=== PATIENT | male | born 1965 | race American Indian/Alaskan Native ===

== ENCOUNTER 2019-10-27 21:16 | Emergency (ER) | payer SELFPAY ==
--- NOTE | 2019-10-27 21:26 | Emergency Department Report ---
Blank Doc - Documentation Documentation: 54-year-old male that presents with dizziness and lightheadedness. This initial assessment/diagnostic orders/clinical plan/treatment(s) is/are subject to change based on patient's health status, clinical progression and re- assessment by fellow clinical providers in the ED. Further treatment and workup at subsequent clinical providers discretion. Patient/guardians urged not to elope from the ED as their condition may be serious if not clinically assessed and managed. Initial orders include: 1- Patient sent to [facility] for further evaluation and treatment 2- labs 3- orthostatic vitals needed
[2019-10-27 21:30] VITALS: BP 128/83
[2019-10-27 22:25] LABS: Eosinophils % (Auto) 0.1 % (0.0-4.3); Hematocrit 45.2 % (35.5-45.6); Hemoglobin 15.1 gm/dl (11.8-15.2); Lymphocytes # (Auto) 1.1 K/mm3 (1.2-5.4); Lymphocytes % (Auto) 21.5 % (13.4-35.0); Mean Corpuscular HGB Conc 33 % (32-34); Mean Corpuscular Volume 85 fl (84-94); Monocytes # (Auto) 0.5 K/mm3 (0.0-0.8); Monocytes % (Auto) 8.8 % (0.0-7.3); Platelet Count 142 K/mm3 (140-440); Red Blood Count 5.32 M/mm3 (3.65-5.03); Red Cell Distribution Width 13.5 % (13.2-15.2)
[2019-10-27 22:39] LABS: Alanine Aminotransferase 72 units/L (7-56); Albumin 3.9 g/dL (3.9-5); BUN/Creatinine Ratio 11; Blood Urea Nitrogen 16 mg/dL (9-20); Calcium 9.2 mg/dL (8.4-10.2); Hemolysis Index 12
--- NOTE | 2019-10-28 00:35 | Emergency Department Report ---
HPI - General Chief Complaint: Dizziness Time Seen by Provider: 10/27/19 21:24 - HPI HPI: 54-year-old -[place] male presents to the emergency department with complaint of a 1.5-week history of lightheadedness and generalized weakness/fatigue. The lightheadedness is as if he would pass out. He denies any headache, chest pain, shortness of breath, vision change, slurred speech, or any other neurological deficits. Patient denies any fever but says that he has sometimes felt hot and sweaty. No past medical history. No recent travel or sick contacts at home. No primary care physician. He has not taken anything for his symptoms prior to presentation today. ED Past Medical Hx - Past Medical History Previous Medical History?: No - Social History Smoking Status: Never Smoker Substance Use Type: None ED Review of Systems ROS: Stated complaint: DIZZINESS/WEAKNESS Other details as noted in HPI Comment: All other systems reviewed and negative Constitutional: weakness. denies: fever Eyes: denies: eye pain, vision change ENT: denies: ear pain, throat pain Respiratory: denies: cough, shortness of breath Cardiovascular: denies: chest pain, palpitations Gastrointestinal: denies: abdominal pain, vomiting Genitourinary: denies: dysuria, discharge Musculoskeletal: denies: back pain, arthralgia Skin: denies: rash, lesions Neurological: denies: headache, numbness, paresthesias, vertigo Physical Exam - Physical Exam Vital Signs: Vital Signs 10/27/19 21:28 Temperature 99.3 F Pulse Rate 108 H Respiratory 18 Rate Blood Pressure 128/83 O2 Sat by Pulse 95 Oximetry Physical Exam: GENERAL: The patient is well-developed well-nourished. HENT: Normocephalic. Atraumatic. Patient has moist mucous membranes. EYES: Extraocular motions are intact. No nystagmus. NECK: Supple. Trachea is midline. CHEST/LUNGS: Clear to auscultation. There is no respiratory distress noted. HEART/CARDIOVASCULAR: Regular. There is no tachycardia. There is no murmur. ABDOMEN: Abdomen is soft, nontender. Patient has normal bowel sounds. There is no abdominal distention. SKIN: Skin is warm and dry. NEURO: The patient is awake, alert, and oriented. The patient is cooperative. The patient has no focal neurologic deficits. Normal speech. Cranial nerves II through XII grossly intact. MUSCULOSKELETAL: There is no tenderness or deformity. There is no limitation range of motion. There is no evidence of acute injury. Muscle strength 5 out of 5 for upper and lower extremities bilaterally. ED Course Vital Signs 10/27/19 21:28 Temperature 99.3 F Pulse Rate 108 H Respiratory 18 Rate Blood Pressure 128/83 O2 Sat by Pulse 95 Oximetry ED Medical Decision Making - Lab Data Result diagrams: 10/27/19 21:52 10/27/19 21:52 - EKG Data -: EKG Interpreted by Me EKG shows normal: sinus rhythm (PACs), axis (Left axis deviation), intervals, QRS complexes (Left anterior fascicular block), ST-T waves (T wave inversions to the lateral leads) Rate: normal - EKG Data When compared to previous EKG there are: previous EKG unavailable Interpretation: other (Sinus rhythm with PACs, rate of 83 bpm, left anterior fascicular block, T wave inversions to the lateral leads) - Medical Decision Making This patient presents to the emergency department with some lightheadedness, generalized fatigue and/or weakness. On examination he does not have any focal, motor or sensory deficits and his cranial nerves are intact. He has full muscle strength to all extremities. Patient's labs were unremarkable including CBC, metabolic panel, TSH and troponin except for some elevated liver enzymes. He has no complaints of any abdominal pain. An EKG was done that did not show any signs of ST elevation LA but patient did have some T wave inversions in the lateral leads and a left anterior fascicular block. I had spoken to the patient multiple times about some of his lab results and the EKG. I went back to speak to the patient regarding the TSH and troponin levels and the patient had eloped from the emergency department. - Differential Diagnosis Dysrhythmia, hypothyroidism, electrolyte abnormalities, anemia Critical Care Time: No Critical care attestation.: If time is entered above; I have spent that time in minutes in the direct care of this critically ill patient, excluding procedure time. ED Disposition Clinical Impression: Lightheaded, Generalized weakness, Elevated liver enzymes Fatigue Qualifiers: Fatigue type: unspecified Qualified Code(s): R53.83 - Other fatigue Disposition: Z- ELOPED Is pt being admited?: No Condition: Stable Instructions: Weakness (ED), Lightheadedness (ED), Fatigue (ED) Additional Instructions: Please follow-up with a primary care physician in the next few days. Return to the emergency department immediately with any worsening of your symptoms or any acute distress. I have given you a referral for [facility] to follow-up regarding your elevated liver enzymes. Until that time, I recommend you avoid any alcohol consumption or any use of Tylenol. Referrals: PRIMARY MD YUVAL [Primary Care Provider] - 3-5 Days PRISCILA JUAREZ MD [Staff Physician] - 3-5 Days [facility] [Provider Group] - 3-5 Days [facility] [Provider Group] - 3-5 Days Time of Disposition: 00:50
== END 2019-10-28 02:00 | disposition left against medical advice (07) ==
LOC: ED 21:16
DX: R42 Dizziness and giddiness (principal); R53.1 Weakness; R53.83 Other fatigue; R94.5 Abnormal results of liver function studies
CPT/HCPCS: 36415; 80053; 84443; 84484; 85025; 93005; 93010; 99283